=== PATIENT | male | born 1935 | race Caucasian/White ===

== ENCOUNTER 2016-08-24 09:21 | Day surgery (SDC) | payer OTHER ==
[2016-08-24] MEDS ORDERED: BENADRYL ONE (09:35)
[2016-08-24] MEDS ORDERED: TYLENOL ONE (09:35)
[2016-08-24] MEDS ORDERED: NS 250 ML ONE (09:35)
[2016-08-24 13:33] VITALS: BP 130/55
== END 2016-08-24 13:44 | disposition home or self-care (01) ==
LOC: INF 09:21
PROVIDERS: ATTEND Internal Medicine Hematology & Oncology
DX: D69.6 Thrombocytopenia, unspecified (principal)
CPT/HCPCS: 36430; 86850; 86900; 86901; 86920; J7050; P9016; P9035

== ENCOUNTER 2016-08-27 10:53 | Day surgery (SDC) | payer OTHER ==
[2016-08-27 12:01] LABS: HEMATOCRIT 29.4 % (42.0-52.0); HEMOGLOBIN 9.1 g/dL (14.0-18.0); MCH 34.3 PG (27-31); MCV 110.9 FL (81-99); MPV 12.7 FL (7.4-10.4); RBC 2.65 XMIL (4.7-6.1)
[2016-08-27] MEDS ORDERED: BENADRYL ONE (12:41)
[2016-08-27] MEDS ORDERED: NS 250 ML ONE (12:41)
[2016-08-27] MEDS ORDERED: TYLENOL ONE (12:41)
[2016-08-27 13:42] VITALS: BP 134/64
== END 2016-08-27 13:52 | disposition home or self-care (01) ==
LOC: INF 10:53
PROVIDERS: ATTEND Internal Medicine Hematology & Oncology
DX: D69.6 Thrombocytopenia, unspecified (principal)
CPT/HCPCS: 36430; 85027; 86850; 86900; 86901; J7050; P9035